=== PATIENT | male | born 1955 | race Caucasian/White ===

== ENCOUNTER 2017-03-27 03:04 | Inpatient (IN) | payer MEDICARE, MEDICAID ==
[~2017-03-27] VITALS: Ht 177.8 cm; Wt 133.4 kg
--- NOTE | 2017-03-27 03:30 | NUR ---
Pt DC FROM [facility] DUE TO SUICIDAL IDEATIONS, PER Pt STATED THAT HE PLANS TO "STRANGLE MYSELF." Pt IS VERBAL, ABLE TO MAKE NEEDS KNOWN. NO S/S OF ACUTE DISTRESS OR SOB NOTED. STABLE AT THIS TIME. WAITING IN ER BED 2.
--- NOTE | 2017-03-27 03:31 | NUR ---
WAITING FOR PSYCH EVAL
[2017-03-27 03:43] LABS: BASOPHILS # (AUTO) 0.1 /CMM (0.0-0.2); BASOPHILS % (AUTO) 0.5 % (0.0-2.0); EOSINOPHILS # (AUTO) 0.1 /CMM (0.0-0.7); EOSINOPHILS % (AUTO) 1.2 % (0.0-6.0); HEMATOCRIT 32 % (39-51); HEMOGLOBIN 10.2 g/dL (13.5-17.5); LYMPHOCYTES % (AUTO) 18.6 % (20.0-44.0); MEAN CORPUSCULAR HEMOGLOBIN 23 PG (26.0-33.0); MEAN CORPUSCULAR HGB CONC 32 g/dl (31.0-36.0); MEAN CORPUSCULAR VOLUME 74 fL (80-96); MONOCYTES # (AUTO) 1.6 /CMM (0.1-1.30); MONOCYTES % (AUTO) 14.3 % (2.0-12.0); NEUTROPHILS # (AUTO) 7.1 /CMM (1.8-8.9); NEUTROPHILS % (AUTO) 65.4 % (43.0-81.0); PLATELET COUNT (AUTO) 391 /CMM (150-450); RED BLOOD CELL COUNT(AUTO) 4.36 MIL/uL (4.5-6.0); WHITE BLOOD COUNT (AUTO) 10.9 K/uL (4.3-11.0)
[2017-03-27 03:59] LABS: ALANINE AMINOTRANSFERASE 23 U/L (12-78); ALBUMIN 2.3 g/dL (3.4-5.0); ALKALINE PHOSPHATASE 63 U/L (46-116); ASPARTATE AMINOTRANSFERASE 19 U/L (15-37); BILIRUBIN,DIRECT 0.1 mg/dL (0.0-0.2); BILIRUBIN,TOTAL 0.4 mg/dL (0.2-1.0); CALCIUM, SERUM 10.3 mg/dL (8.5-10.1); CARBON DIOXIDE 29 mmol/L (21-32); CHLORIDE 107 mmol/L (98-107); CREATININE 0.9 mg/dL (0.6-1.3); GLUCOSE 101 mg/dL (74-106); POTASSIUM 4.1 mmol/L (3.5-5.1); SODIUM SERUM 142 mmol/L (136-145); TOTAL PROTEIN, SERUM 7.4 g/dL (6.4-8.2); UREA NITROGEN, BLOOD 14 mg/dL (7-18)
[2017-03-27 04:00] LABS: SALICYLATE 2.2 mg/dL (2.8-20.0)
[2017-03-27 04:01] LABS: ACETAMINOPHEN 0 ug/ml (10-30)
[2017-03-27 04:02] LABS: ALCOHOL, BLOOD < 3 mg/dL (0-0)
[2017-03-27 04:21] LABS: BAND % (MANUAL) 2 % (0.0-5.0); EOSINOPHILS % (MANUAL) 2 % (0-4); LYMPHOCYTES % (MANUAL) 20 % (16-48); METAMYELOCYTES % 1 % (0-0); MONOCYTES % (MANUAL) 12 % (0-11.0); MYELOCYTES % 1 % (0-0); NEUTROPHILS % (MANUAL) 62 (42-76)
--- NOTE | 2017-03-27 05:20 | NUR ---
URINE SAMPLE COLLECTED
[2017-03-27] MEDS ORDERED: ACETAMINOPHEN 325 MG TABLET ONE (05:58)
[2017-03-27] MEDS ORDERED: ACETAMINOPHEN 325 MG TABLET PO ONE (06:00)
[2017-03-27 06:04] LABS: APPEARANCE,URINE CLEAR (CLEAR); BILIRUBIN,URINE NEGATIVE (NEGATIVE); BLOOD, URINE NEGATIVE Ery/uL (NEGATIVE); COLOR,URINE YELLOW (YELLOW); KETONES,URINE NEGATIVE (NEGATIVE); LEUKOCYTE ESTERASE ,URINE NEGATIVE (NEGATIVE); NITRITE, URINE NEGATIVE (NEGATIVE); PROTEIN,URINE NEGATIVE (NEGATIVE); UGLUCOSE NEGATIVE (NEGATIVE); UROBILINOGEN,URINE 0.2 EU/dL (0.2)
--- NOTE | 2017-03-27 06:30 | NUR ---
Pt COMFORTABLY WAITING IN ER BED 2. NO S/S OF ACUTE DISTRESS OR SOB NOTED. RESPIRATIONS EVEN AND UNLABORED. PENDING ADMISSION TO GPS. 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
[2017-03-27] MEDS ORDERED: QUET100T PO (08:01)
[2017-03-27] MEDS ORDERED: HYDR-4077 PO (08:01)
[2017-03-27] MEDS ORDERED: FERR-58 PO (08:01)
[2017-03-27] MEDS ORDERED: HYDR-552 PO (08:01)
[2017-03-27] MEDS ORDERED: OMEG1CAP40 PO (08:01)
[2017-03-27] MEDS ORDERED: ESCI10TA PO (08:01)
[2017-03-27] MEDS ORDERED: ACET-868 PO (08:01)
[2017-03-27] MEDS ORDERED: ASPI81TA2 PO (08:01)
[2017-03-27] MEDS ORDERED: ZOLP10TA2 PO (08:01)
--- NOTE | 2017-03-27 08:03 | NUR ---
chucho sequeira called for eval
--- NOTE | 2017-03-27 08:09 | NUR ---
RESTING QUIETLY, NAD NOTED. PROVIDED WITH BREAKFAST TRAY.
[2017-03-27] MEDS ORDERED: IBUPROFEN 200 MG TABLET ONE (08:14)
--- NOTE | 2017-03-27 08:18 | NUR ---
PT REPORTED CHRONIC LOWER BACK PAIN. NOTIFIED. MOTRIN ORDER RECEIVED AND ADMINISTERED.
[2017-03-27] MEDS ORDERED: IBUPROFEN 400 MG TABLET PO ONE (08:30)
--- NOTE | 2017-03-27 09:48 | NUR ---
ART CAPILLA AT BEDSIDE
--- NOTE | 2017-03-27 10:15 | NUR ---
REPORT GIVEN TO ANN SHELL FOR ADMISSION. PER ANN, PT MUST RECEIVE ANTIHYPERTENSIVES PRIOR TO ADMISSION.
[2017-03-27] MEDS ORDERED: hydrALAZINE HCL 10 MG TABLET PO ONE (10:30)
--- NOTE | 2017-03-27 11:57 | NUR ---
GPS RN ADMITTING NOTE: PT 62 Y/O MALE ADMITTED FROM [facility] ON 5150 FOR DANGER TO SELF PER HOLD PT DEPRESSED TEARFUL FLAT AFFECT,PT HAD SI WITH PLAN TO STRANGLE SELF WITH CALL LIGHT CORD PT FEELING ALONE. UPON FACE TO FACE EVALUATION PT STATED" I WAS HEARING MY SON VOICE TELLING ME TO KILL MYSELF ,IM HEARING HIS VOICE A LOT " PT DENIES SI/HI AT THIS TIME CONTRACT FOR SAFETY SIGN, PT A/O X3 DEPRESSED MOOD HAS HX OF DEPRESSION AND SCHIZOAFFECTIVE D/O, HTN . ANEMIA , MORBID OBESITY . SKIN CHECKED NOTED DRYNESS ON BOTH LEGS AND FACE ,BELONGING LIST SIGN CONTRABAND TAKEN FROM PT , WILL CONTINUE MONITORING FOR SAFETY AND BEHAVIOR Q 15 MIN. Addendum: 03/27/17 at 1728 by BHUPENDRA MARIE RN FOR SKIN ASSESSMENT NOTED PT HAS BUMP ON HIS LEFT BACK HEAD PT STATED HE HAD THIS BUMP FOR A LONG TIME .
[2017-03-27] MEDS ORDERED: ACETAMINOPHEN 325 MG TABLET PO PRN ×2 (12:00→21:00)
[2017-03-27] MEDS ORDERED: ZOLPIDEM TARTRATE 5 MG TABLET PO PRN (12:00)
[2017-03-27] MEDS ORDERED: MAGNESIUM HYDROXIDE 30 ML UDC PO PRN (12:00)
[2017-03-27] MEDS ORDERED: MAG HYDROX/AL HYDROX/SIMETH 30 ML UDC PO PRN (12:00)
[2017-03-27 16:00] VITALS: BP 147/79
[2017-03-27] MEDS: LORAZEPAM 0.5 MG TABLET PO PRN ×2 (18:22→21:04)
--- NOTE | 2017-03-27 18:24 | NUR ---
GPS RN NOTE: PT SCREAMING AND YELLING ATIVAN 1 MG PO PRN GIVEN PER ORDER WILL CONTINUE MONITORING FOR SAFETY AND BEHAVIOR Q 15 MIN
--- NOTE | 2017-03-27 19:30 | NUR ---
GPS RN NOTE, RECEIVED PATIENT AWAKE AND IN BED NO S/S OR COMPLAINTS OF PAIN AT THIS TIME. PATIENT IS DISPLAYING NO S/S OF APPARENT DISTRESS AT THIS TIME. PATIENT BREATHING IS UNLABORED WITH EQUAL RISE AND FALL OF THE CHEST. PATIENT HAS A ONE TO ONE SITTER FOR SAFETY. PATIENT IS ALERT AND ORIENTED X 2 ON ROOM AIR WITH A SPOO2 96 %. PATIENT IS MED COMPLIANT, UNPREDICTABLE AT TIMES, ANXIOUS AT TIMES, DISORGANIZED, AND NEEDS REORIENTATION. PATIENT DENIES SUICIDE IDEATIONS AND HOMICIDAL IDEATIONS AT THIS TIME. PATIENT ASSISTED WITH TURNING AND REPOSITIONING Q2HR AND PRN FOR COMFORT AND CIRCULATION. PATIENT HAS NO NEEDS AT THIS TIME. PATIENT EDUCATED ON THE USE OF THE CALL ROSSI. PATIENT BED SIDE RAILS UP X 2 FOR SAFETY. PATIENT BED IS LOCKED AND LOW WILL CONTINUE TO MONITOR AND MAINTAIN SAFETY Q15 MIN WITH THE HELP OF STAFF.
[2017-03-27 19:59] VITALS: BP 168/85
[2017-03-27] MEDS: HYDROCODONE/APAP 5/325MG 1 EACH TABLET PO PRN (20:29)
--- NOTE | 2017-03-27 20:29 | NUR ---
GPS RN NOTE, PATIENT HAS A COMPLAINT OF LOWER BACK AT 5 OUT 10 ON THE PAIN SCALE, NEEDS A MED RECON, AND IS REQUESTING NORCO AT THIS TIME. PATIENT VITAL SIGNS ARE STABLE. PAGED [facility] AND INFORMED DR EPSTEIN OF MY FINDINGS. DR EPSTEIN ORDERED NORCO 5-325 PO Q4HR PRN AND SAID HE WILL RECONCILE THIS PATIENT'S MEDICATIONS. ALL ORDERS NOTED AND CARRIED OUT WILL CONTINUE TO MONITOR THIS PATIENT.
--- NOTE | 2017-03-27 21:04 | NUR ---
GPS RN NOTE, PATIENT HAS A COMPLAINT OF FEELING ANXIOUS AND IS REQUESTING ATIVAN AT THIS TIME. PATIENT VITAL SIGNS ARE STABLE. GAVE ATIVAN 1MG PO Q8HR PRN ORDERED. WILL REASSESS FOR ANXIETY AND I WILL CONTINUE TO MONITOR THIS PATIENT.
--- NOTE | 2017-03-27 22:45 | NUR ---
GPS RN NOTE, PATIENT HAS A COMPLAINT OF NOT BEING ABLE TO SLEEP AND IS REQUESTING AMBIEN AT THIS TIME. PATIENT VITAL SIGNS ARE STABLE. GAVE AMBIEN 5MG PO HS ORDERED. WILL REASSESS FOR INSOMNIA AND I WILL CONTINUE TO MONITOR THIS PATIENT.
[2017-03-28] MEDS: HYDROCODONE/APAP 5/325MG 1 EACH TABLET PO PRN (00:34)
--- NOTE | 2017-03-28 00:34 | NUR ---
GPS RN NOTE, PATIENT HAS A COMPLAINT OF LOWER BACK AT 5 OUT 10 ON THE PAIN SCALE AND IS REQUESTING NORCO AT THIS TIME. PATIENT VITAL SIGNS ARE STABLE. GAVE NORCO 5-325 1 TAB PO Q4HRS PRN ORDERED. WILL REASSESS PAIN AND I WILL CONTINUE TO MONITOR THIS PATIENT.
--- NOTE | 2017-03-28 02:22 | NUR ---
GPS RN NOTE, PATIENT HAS A COMPLAINT OF LOWER BACK AT 8 OUT 10 ON THE PAIN SCALE AND STATES, " NORCO 5-325 IS NOT HELPING WITH MY PAIN, I NEED SOMETHING STRONGER ". PAGED [facility] AND INFORMED DR EPSTEIN OF MY FINDINGS. DR EPSTEIN ORDERED NORCO 10-325 1 TAB PO Q6HR PRN. ALL ORDERS NOTED AND CARRIED OUT. PATIENT VITAL SIGNS ARE STABLE. WILL CONTINUE TO MONITOR THIS PATIENT.
[2017-03-28] MEDS ORDERED: HYDROCODONE/APAP 10/325MG 1 EA TABLET ONE (04:18)
[2017-03-28] MEDS: HYDROCODONE/APAP 10/325MG 1 EA TABLET PO PRN ×4 (04:19→23:26)
--- NOTE | 2017-03-28 04:19 | NUR ---
GPS RN NOTE, PATIENT HAS A COMPLAINT OF LOWER BACK AT 8 OUT 10 ON THE PAIN SCALE AND IS REQUESTING NORCO AT THIS TIME. PATIENT VITAL SIGNS ARE STABLE. GAVE NORCO 10-325 1 TAB PO Q6HRS PRN ORDERED. WILL REASSESS PAIN AND I WILL CONTINUE TO MONITOR THIS PATIENT.
[2017-03-28 06:47] LABS: ALBUMIN 2.4 g/dL (3.4-5.0); BILIRUBIN,TOTAL 0.3 mg/dL (0.2-1.0); CALCIUM, SERUM 10.2 mg/dL (8.5-10.1); CREATININE 0.8 mg/dL (0.6-1.3); TOTAL PROTEIN, SERUM 7.7 g/dL (6.4-8.2)
[2017-03-28 08:21] VITALS: BP 162/95
[2017-03-28 08:48] LABS: IRON, SERUM 14 ug/dl (50-175); TOTAL IRON BINDING CAPACITY 150 ug/dl (250-450)
[2017-03-28] MEDS: FERROUS SULFATE (325 MG) 325 MG/TAB TABLET PO SCH ×2 (09:07→16:34)
[2017-03-28] MEDS: ASPIRIN 81 MG TAB.CHEW PO SCH (09:07)
[2017-03-28] MEDS: hydrALAZINE HCL 50 MG TABLET PO SCH ×3 (09:07→16:35)
--- NOTE | 2017-03-28 10:45 | NUR ---
GPS/RN PATIENT REPOTS PAIN IN BILATERAL LEGS AND LOWER BACK 10/31, ADMINISTERED NORCO PO , WILL CONTINUE TO MONITOR.
[2017-03-28] MEDS: ARIPIPRAZOLE 2 MG TABLET PO SCH ×2 (13:25→16:34)
[2017-03-28] MEDS: DULOXETINE HCL 30 MG CAPSULE.DR PO SCH (13:26)
[2017-03-28 16:20] VITALS: BP 150/90
--- NOTE | 2017-03-28 16:59 | NUR ---
GPS/RN PATIENT REPORTS 8 LOWER BACK PAIN, ADMINISTERED NORCO PO 10, WILL CONTINUE TO MONITOR.
[2017-03-28 19:38] VITALS: BP 144/77
[2017-03-28] MEDS: TRAZODONE 50 MG TABLET PO SCH (21:16)
--- NOTE | 2017-03-28 23:30 | NUR ---
GPS/RN-NOTES PATIENT C/O 9/10 LOWER BACK PAIN AND REQUESTING FOR NORCO. NORCO 10/325MG P.O GIVEN PRN ORDER. WILL CONT. MONITORING FOR SAFETY.
[2017-03-29] MEDS: LORAZEPAM 0.5 MG TABLET PO PRN (04:04)
--- NOTE | 2017-03-29 04:08 | NUR ---
GPS/RN-NOTES PATIENT AWAKE AND REQUESTING ATIVAN. ATIVAN 1MG P.O GIVEN PRN ORDER. WILL CONT. MONITORING FOR SAFETY AND BEHAVIOR.
--- NOTE | 2017-03-29 04:19 | NUR ---
GPS/RN-NOTES PATIENT IS VERY ANGRY CLAIMING HIS PAIN MEDICATION WAS NOT GIVEN ON TIME DESPITE IT WAS GIVEN TO HIM ON THE DUE TIME HE ASK. PATIENT THREATEN TO REPORT THE [facility] AND THE HOSPITAL FOR NOT BEING TREATED THE WAY HE WANTS IT.
--- NOTE | 2017-03-29 04:45 | NUR ---
GPS/RN-NOTES PATIENT LAYING IN HIS BED CALM NO ACUTE DISTRESS NOTED. WILL CONT. MONITORING Q15 MINS. FOR SAFETY AND BEHAVIOR
[2017-03-29] MEDS: HYDROCODONE/APAP 10/325MG 1 EA TABLET PO PRN (05:28)
--- NOTE | 2017-03-29 05:32 | NUR ---
GPS/RN-NOTES PATIENT C/O 9/10 LOWER BACK PAIN AND REQUESTING FOR NORCO. NORCO 10/325MG P.O GIVEN PRN ORDER. WILL CONT. MONITORING FOR SAFETY.
--- NOTE | 2017-03-29 06:33 | NUR ---
GPS/RN-NOTES PATIENT LAYING IN HIS BED INTERMITTENTLY SLEEPING,NO ACUTE DISTRESS NOTED.WILL ENDORSE TO INCOMING NURSE FOR CONTINUITY OF CARE.
[2017-03-29 08:27] VITALS: BP 159/90
[2017-03-29] MEDS: FERROUS SULFATE (325 MG) 325 MG/TAB TABLET PO SCH ×2 (09:15→16:38)
[2017-03-29] MEDS: ARIPIPRAZOLE 2 MG TABLET PO SCH ×2 (09:15→16:35)
[2017-03-29] MEDS: ASPIRIN 81 MG TAB.CHEW PO SCH (09:16)
[2017-03-29] MEDS: DULOXETINE HCL 30 MG CAPSULE.DR PO SCH (09:16)
[2017-03-29] MEDS: hydrALAZINE HCL 50 MG TABLET PO SCH ×3 (09:17→16:39)
--- NOTE | 2017-03-29 11:10 | NUR ---
RN NOTES: DR PEREIRA ORDERED TO DISCONTINUE NORCO AND ORDERED OXYCODONE 10 MG PRN Q 4HOURS
[2017-03-29] MEDS ORDERED: oxyCODONE HCL SR 10MG TAB.SR.12H PO PRN (11:30)
[2017-03-29] MEDS: oxyCODONE IR immediate release 5 MG CAPSULE PO PRN ×3 (11:37→20:04)
[2017-03-29 15:52] VITALS: BP 142/86
[2017-03-29 20:32] VITALS: BP 153/90
[2017-03-29] MEDS: TRAZODONE 50 MG TABLET PO SCH (22:21)
[2017-03-30] MEDS: oxyCODONE IR immediate release 5 MG CAPSULE PO PRN ×5 (00:18→21:49)
[2017-03-30 08:00] VITALS: BP 133/70
[2017-03-30] MEDS: hydrALAZINE HCL 50 MG TABLET PO SCH ×3 (08:19→16:18)
[2017-03-30] MEDS: DULOXETINE HCL 30 MG CAPSULE.DR PO SCH (08:19)
[2017-03-30] MEDS: ARIPIPRAZOLE 2 MG TABLET PO SCH ×2 (08:19→16:18)
[2017-03-30] MEDS: ASPIRIN 81 MG TAB.CHEW PO SCH (08:20)
[2017-03-30] MEDS: FERROUS SULFATE (325 MG) 325 MG/TAB TABLET PO SCH ×2 (08:20→16:18)
[2017-03-30 09:26] VITALS: BP 133/70
[2017-03-30 12:13] VITALS: BP 155/70
--- NOTE | 2017-03-30 12:33 | NUR ---
Initial Discharge Plan: Patient is currently at [facility] [address] [place] [address] / . SAM called and spoke with Chadwick in admissions regarding patient. Chadwick stated that, per DON, patient is able to return. SAM then called patient's sister, Qiana [phone] and updated her on pt's condition. SW to follow up with MD and arrange safe and proper discharge.
--- NOTE | 2017-03-30 13:54 | NUR ---
Discharge Planning: SAM faxed updated inquiry to [facility] [address] [place] [address], / fax number [phone]. SW to follow up.
--- NOTE | 2017-03-30 14:00 | NUR ---
Discharge Planning: SAM called [facility] [address] [place] [address], / fax number [phone] and asked to speak with Chadwick in admissions. SAM was informed that the front desk coordinator and the DON stepped out for a meeting. SAM left a message, requesting a call back.
[2017-03-30 16:01] VITALS: BP 151/81
--- NOTE | 2017-03-30 16:17 | NUR ---
Discharge Planning: confirmed with [facility] [address] [place] [address], / fax number [phone] that patient will be returning to facility tomorrow at 11am.
[2017-03-30] MEDS: LORAZEPAM 0.5 MG TABLET PO PRN (19:48)
[2017-03-30 20:00] VITALS: BP 138/72
[2017-03-30] MEDS: TRAZODONE 50 MG TABLET PO SCH (21:49)
[2017-03-31] MEDS: oxyCODONE IR immediate release 5 MG CAPSULE PO PRN ×2 (04:03→10:30)
[2017-03-31 08:00] VITALS: BP 153/91
[2017-03-31 09:03] VITALS: BP 153/91
[2017-03-31] MEDS: hydrALAZINE HCL 50 MG TABLET PO SCH (09:03)
[2017-03-31] MEDS: ARIPIPRAZOLE 2 MG TABLET PO SCH (09:03)
[2017-03-31] MEDS: ASPIRIN 81 MG TAB.CHEW PO SCH (09:03)
[2017-03-31] MEDS: FERROUS SULFATE (325 MG) 325 MG/TAB TABLET PO SCH (09:03)
[2017-03-31] MEDS: DULOXETINE HCL 30 MG CAPSULE.DR PO SCH (09:03)
--- NOTE | 2017-03-31 09:32 | NUR ---
Discharge Note: Patient will be discharged to SNF [facility] located at [address] [place] [phone], / fax number [phone]. Ambulance transportation was arranged by professor of social work for 11am via [employer], trip #[id number]. film processing utility worker informed Chadwick in admissions at [facility] that patient would be discharged at that time, and he was in agreement. film processing utility worker also informed patients sister, Qiana [phone], about the discharge. Upon discharge, patient was alert and oriented x4. Patient denied suicidal and homicidal ideation. Patient will be seen by his psychiatrist, Dr. Bennett [address] [facility] [address] [address] [phone] at the facility within a week of arriving. Patient will also be seen by his ophthalmic technician, Dr. Sparks [address] [facility] [address], [place] [address] [phone] at the facility. As patient is being discharged to a SNF, substance abuse referrals were not provided. However, patient was encouraged to speak with his psychiatrist, Dr. Bennett, about his substance use / alcohol use on Monday, April [address] Bennett visits the facility. Patient was also referred to [employer] [phone] and the [employer] 800-LUNGUSA. Patient was also encouraged to call the helpline for Nicotine Anonymous [phone].
[2017-03-31] MEDS ORDERED: LIDOCAINE 5% (PATCH) 1 EA PATCH TP SCH (10:00)
--- NOTE | 2017-03-31 12:00 | NUR ---
gps/rn pt d/c to [facility] located at [address] [place] [phone], . pt to be assigned to room 8b. report given to Naty /credit and loan collections supervisor. no SI or HI at the time of discharge reported. property returned. pictures taken on discharge. exit care and med list provided. VSS. pt left via ambulance.
== END 2017-03-31 12:00 | DRG 885 ==
LOC: ER 03:06 → GPS 10:26
PROVIDERS: ADMIT Psychiatry & Neurology Psychiatry; ATTEND Psychiatry & Neurology Psychiatry
DX: F25.1 Schizoaffective disorder, depressive type (principal); E44.0 Moderate protein-calorie malnutrition; R45.851 Suicidal ideations; F29 Unspecified psychosis not due to a substance or known physiological condition; I45.4 Nonspecific intraventricular block; Z88.8 Allergy status to other drugs, medicaments and biological substances; M19.90 Unspecified osteoarthritis, unspecified site; R26.9 Unspecified abnormalities of gait and mobility; Z73.6 Limitation of activities due to disability; F31.9 Bipolar disorder, unspecified; E66.9 Obesity, unspecified; M54.5 Low back pain; D50.9 Iron deficiency anemia, unspecified; Z79.899 Other long term (current) drug therapy; I10 Essential (primary) hypertension
CPT/HCPCS: 36415; 71010-TC; 80048-TC; 80053-TC; 80061-TC; 80076-TC; 80305; 81000-TC; 83540-TC; 85025-TC; 87081-TC; A4606; G0480; Z7610